=== PATIENT | male | born 1990 | race Caucasian/White ===

== ENCOUNTER 2018-02-14 14:42 | Emergency (ER) | payer OTHER ==
--- NOTE | 2018-02-14 15:39 | C.PDOC ---
History Of Present Illness 27 year old male with no significant PMHx presents to the ED c/o SOB while he was sitting in a room with many people inside. Patient states he thought symptoms would get better after he went outside, which was less crowded,but did not help. Patient reports this felt similar to another episode he had from allergies in 2012, used albuterol mdi then with relief. Patient reports he took some claritin today but did not help. Patient denies fever, chill, cough, recent prolonged immobilization, leg swelling. Time Seen by Provider: 02/14/18 14:54 Chief Complaint (Nursing): Shortness Of Breath History Per: Patient History/Exam Limitations: no limitations Onset/Duration Of Symptoms: Days Current Symptoms Are (Timing): Still Present Quality: "Pain" Associated Symptoms: denies: Ankle/Leg Swelling, Dizziness Recent travel outside of the [place]: No Additional History Per: Patient Past Medical History Reviewed: Historical Data, Nursing Documentation, Vital Signs Vital Signs: Last Vital Signs Temp 99 F 02/14/18 14:48 Pulse 84 02/14/18 14:48 Resp 16 02/14/18 15:09 BP 110/73 02/14/18 14:48 Pulse Ox 98 02/14/18 16:23 - Medical History PMH: HTN Surgical History: Appendectomy, Tonsillectomy Family History: States: Unknown Family Hx - Social History Hx Alcohol Use: Yes Hx Substance Use: No Review Of Systems Constitutional: Negative for: Fever, Chills Cardiovascular: Negative for: Chest Pain Respiratory: Positive for: Shortness of Breath. Negative for: Cough Gastrointestinal: Negative for: Nausea, Vomiting Skin: Negative for: Rash Neurological: Negative for: Headache, Dizziness Physical Exam - Physical Exam Appears: Non-toxic, No Acute Distress Skin: Normal Color, Warm, Dry Head: Atraumatic, Normacephalic Eye(s): bilateral: Normal Inspection Nose: No Discharge Oral Mucosa: Moist Neck: Normal ROM, Supple Chest: Symmetrical Cardiovascular: Rhythm Regular, No Murmur Respiratory: Normal Breath Sounds, No Rales, No Rhonchi, No Wheezing Neurological/Psych: Oriented x3 Gait: Steady ED Course And Treatment ECG: Interpreted By Me, Viewed By Me ECG Rhythm: Sinus Rhythm ECG Interpretation: Normal Rate From EC (BPM) O2 Sat by Pulse Oximetry: 98 (ON RA) Pulse Ox Interpretation: Normal Medical Decision Making Medical Decision Making: Plan: * CXR * EKG pt with neg cxr, normal ekg, feels better after saline nebulizer. pt in no respiratory distress, speaks in full sentences. will d/c with albuterol mdi. Disposition Counseled Patient/Family Regarding: Studies Performed, Diagnosis, Need For Followup, Rx Given - Disposition Referrals: [facility] [Outside] Disposition: HOME/ ROUTINE Disposition Time: 16:45 Condition: GOOD Additional Instructions: Please follow up with a primary care doctor; either in clinic or check with your insurance for one, in the next few days. Use albuterol 2 puffs every 4-6 hours if needed. Return to ER for any worsening symptoms. Prescriptions: Albuterol Sulfate [Proair Respiclick] 2 puff IH Q6 #1 [email or web address] Instructions: Shortness of Breath (Dyspnea) (DC) Forms: [facility] (Finnish), General Discharge Instructions - Clinical Impression Clinical Impression: Dyspnea - PA / GIMP TACKER / Resident Statement MD/DO has reviewed & agrees with the documentation as recorded. - Scribe Statement The provider has reviewed the documentation as recorded by the Scribe Juve Snow All medical record entries made by the Scribe were at my direction and personally dictated by me. I have reviewed the chart and agree that the record accurately reflects my personal performance of the history, physical exam, medical decision making, and the department course for this patient. I have also personally directed, reviewed, and agree with the discharge instructions and disposition.
[2018-02-14] MEDS: Sodium Chloride 0.9% Inh Soln (3mL) UD INH ONE ×2 (15:45→15:51)
--- NOTE | 2018-02-14 16:12 | RAD ---
HISTORY: sob COMPARISON: No prior. TECHNIQUE: Chest PA and lateral FINDINGS: LUNGS: No active pulmonary disease. PLEURA: No significant pleural effusion identified. No pneumothorax apparent. CARDIOVASCULAR: Normal. OSSEOUS STRUCTURES: No significant abnormalities. VISUALIZED UPPER ABDOMEN: Normal. OTHER FINDINGS: None. IMPRESSION: No active disease.
--- NOTE | 2018-02-14 16:22 | C.PDOC ---
Time Seen by Provider: 02/14/18 14:54 Chief Complaint (Nursing): Shortness Of Breath Past Medical History Vital Signs: Last Vital Signs Temp 99 F 02/14/18 14:48 Pulse 84 02/14/18 14:48 Resp 16 02/14/18 15:09 BP 110/73 02/14/18 14:48 Pulse Ox 98 02/14/18 14:48 - Medical History PMH: HTN Surgical History: Appendectomy, Tonsillectomy - Social History Hx Alcohol Use: Yes Hx Substance Use: No ED Course And Treatment ECG Rhythm: Sinus Rhythm (with sinus arrhythmia) ECG Interpretation: Normal O2 Sat by Pulse Oximetry: 98 Pulse Ox Interpretation: Normal - Radiology CXR: Read By Radiologist CXR Interpretation: Yes: No Acute Disease Disposition - Disposition
[2018-02-14 16:58] VITALS: BP 112/82; PULSE 76; RESP 18; TEMP 98.2; O2SAT 99
--- NOTE | 2018-02-17 16:15 | CARD ---
APPROVED REPORT EKG Measurement Heart [id number] <Conclusion> Normal sinus rhythm with sinus arrhythmia Normal ECG
== END 2018-02-14 16:58 | disposition home or self-care (01) ==
LOC: C.ER 14:42
DX: R06.00 Dyspnea, unspecified (principal); I10 Essential (primary) hypertension